=== PATIENT | female | born 1940 | race Caucasian/White ===

== ENCOUNTER 2018-03-18 19:23 | Emergency (ER) | payer MEDICARE ==
[2018-03-18] MEDS ORDERED: Sodium Chloride 0.9% 1,000 ML ONE (19:54)
[2018-03-18 19:55] LABS: BASO # 0.1 K/uL (0.0-0.2); BASO % 1.1 % (0.0-2.0); EOS # 0.3 K/uL (0.0-0.7); EOS % 5.6 % (0.0-4.0); HEMOGLOBIN 11.5 g/dL (11.0-16.0); LYMPH # 1.8 K/uL (1.0-4.3); LYMPH % 33.5 % (20.0-40.0); MEAN CELL VOLUME 88.4 fL (81.0-99.0); MEAN CORPUSCULAR HEMOGLOBIN 29.8 pg (27.0-31.0); MEAN CORPUSCULAR HGB CONC 33.7 g/dL (33.0-37.0); MEAN PLATELET VOLUME 9.9 fL (7.2-11.7); MONO # 0.4 K/uL (0.0-0.8); MONO % 7.8 % (0.0-10.0); NEUT # 2.8 K/uL (1.8-7.0); RBC 3.86 Mil/uL (3.80-5.20); RED CELL DISTRIBUTION WIDTH 14.3 % (11.5-14.5); WHITE BLOOD COUNT 5.4 K/uL (4.8-10.8)
[2018-03-18] MEDS ORDERED: Sodium Chloride 0.9% 1,000 ML IV SCH (20:00)
[2018-03-18 20:06] LABS: ALB/GLOB RATIO 1.4 (1.0-2.1); ALBUMIN 4.5 g/dL (3.5-5.0); CALCIUM 9.4 mg/dl (8.6-10.4)
--- NOTE | 2018-03-18 20:06 | C.PDOC ---
History Of Present Illness 77 y/o female brought to the ED for evaluation of vaginal bleeding that began 1 hour ago. Patient states that she went to shower and noticed bright red blood from the vagina running down her leg. No pain. Denies any abdominal discomfort, recent weight loss, change in appetite, dizziness, SOB, urinary symptoms, or GI changes. Patient states she has never had similar symptoms in the past and the bleeding has not continued. Time Seen by Provider: 03/18/18 19:41 Chief Complaint (Nursing): Female Genitourinary History Per: Patient History/Exam Limitations: no limitations Onset/Duration Of Symptoms: Hrs (x1) Current Symptoms Are (Timing): Still Present Past Medical History Reviewed: Historical Data, Nursing Documentation, Vital Signs Vital Signs: Last Vital Signs Temp 98.1 F 03/18/18 19:25 Pulse 79 03/18/18 19:25 Resp 20 03/18/18 19:25 BP 147/73 03/18/18 19:25 Pulse Ox 100 03/18/18 19:25 - Medical History PMH: Anemia, HTN Family History: States: No Known Family Hx - Social History Hx Alcohol Use: No Hx Substance Use: No - Immunization History Hx Tetanus Toxoid Vaccination: No Hx Influenza Vaccination: No Hx Pneumococcal Vaccination: No Review Of Systems Except As Marked, All Systems Reviewed And Found Negative. Constitutional: Negative for: Fever, Chills, Weight loss Eyes: Negative for: Vision Change Cardiovascular: Negative for: Chest Pain, Light Headedness Respiratory: Negative for: Shortness of Breath Gastrointestinal: Negative for: Vomiting, Abdominal Pain, Diarrhea, Rectal Pain Genitourinary: Positive for: Vaginal Bleeding. Negative for: Dysuria, Frequency, Incontinence, Pelvic Pain Neurological: Negative for: Weakness, Dizziness Physical Exam - Physical Exam Appears: Non-toxic, No Acute Distress Skin: Normal Color, Warm, Dry, No Ecchymosis Head: Atraumatic, Normacephalic Eye(s): bilateral: Normal Inspection, PERRL, EOMI Gastrointestinal/Abdominal: Normal Exam, Soft, No Tenderness, No Mass, No Distention, No Guarding Rectal: Normal Exam, No Hemorrhoids, No Mass, No Tenderness Pelvic: Normal External Exam, Normal Bimanual Exam, No Vaginal Bleeding, No Vaginal Discharge Pulses: Left Dorsalis Pedis: Normal, Right Dorsalis Pedis: Normal Neurological/Psych: Oriented x3, Normal Speech, Normal Cranial Nerves ED Course And Treatment - Laboratory Results Result Diagrams: 03/18/18 19:52 03/18/18 19:52 Lab Interpretation: No Acute Changes O2 Sat by Pulse Oximetry: 100 (RA) Pulse Ox Interpretation: Normal - CT Scan/US Pelvic US Other Rad Studies (CT/US): Read By Radiologist, Radiology Report Reviewed CT/US Interpretation: Name:CUONG GANDHI Exam Date:Mar 18, 2018 8:42:28 PM EDT. Modality Type:SD\US\MT\SR. Description:US - PELVIC REAL TIME TRANSABDOMINAL/TRANSVAGINAL W COLOR DOPPLER. Gender:F Laterality:Bilateral. :40 Referring Physician:Mona Morrell MD. History. Vaginal bleeding. Comparison. None available. Technique. TA/TV. Findings. Uterus. Measures 3.4 x 2.3 x 3.9 cm. Normal in size and appearance. No fibroid or other mass lesion seen. Endometrium. Measures 4.3 mm in diameter. Borderline in size. Cervix. No cervical abnormality identified. Right ovary. Not visualized. Left ovary. Not visualized. Free fluid. No significant free fluid noted. Other Findings. Complex nabothian cyst measures 0.6 x 0.4 x 0.6 cm. Impression. 1. Complex nabothian cyst. 2. Both ovaries are not visualized. Medical Decision Making Medical Decision Making: Initial Plan: --CMP --CBC --Urinalysis --Pelvic US --IV fluids --Reassess and dispo Patient informed of US results. Disposition Counseled Patient/Family Regarding: Studies Performed, Diagnosis, Need For Followup - Disposition Referrals: Robin Sky MD [Medical Doctor] - Disposition: HOME/ ROUTINE Disposition Time: 22:20 Condition: STABLE Additional Instructions: Patient should follow up with a care trainer for comprehensive evaluation for possible vaginal bleeding. Forms: [employer] (Romansh) - Clinical Impression Clinical Impression: Postmenopausal vaginal bleeding - Scribe Statement The provider has reviewed the documentation as recorded by the Scribe (Alyx Mcknight) Provider Attestation: All medical record entries made by the Scribe were at my direction and personally dictated by me. I have reviewed the chart and agree that the record accurately reflects my personal performance of the history, physical exam, medical decision making, and the department course for this patient. I have also personally directed, reviewed, and agree with the discharge instructions and disposition.
[2018-03-18 20:40] LABS: URINE BACTERIA RARE (<OCC); URINE BILIRUBIN NEGATIVE (NEGATIVE); URINE BLOOD 2+ (NEGATIVE); URINE CLARITY Clear (Clear); URINE COLOR Straw (YELLOW); URINE GLUCOSE (UA) NORMAL (Normal); URINE LEUKOCYTE ESTERASE NEG Leu/uL (Negative); URINE PROTEIN NEGATIVE (NEGATIVE); URINE UROBILINOGEN NORMAL mg/dL (0.2-1.0)
[2018-03-18 22:36] VITALS: BP 123/65; PULSE 71; RESP 18; TEMP 98.4; O2SAT 98
--- NOTE | 2018-03-19 11:19 | US ---
Date of service: 03/18/2018 HISTORY: vaginal bleeding COMPARISON: None available. TECHNIQUE: Transabdominal and transvaginal FINDINGS: UTERUS: Measures 5.4 x 2.3 x 3.9 cm. Normal in size and appearance. No fibroid or other mass lesion seen. ENDOMETRIUM: Measures 4 mm in diameter. Unremarkable. CERVIX: Several small nabothian cysts incidentally noted. RIGHT OVARY: Not visualized LEFT OVARY: Not visualized FREE FLUID: No significant free fluid noted. OTHER FINDINGS: None. IMPRESSION: Unremarkable postmenopausal pelvic ultrasound examination. The preliminary findings for this examination were reported by [facility] at 10:09 p.m. on 03/18/2018. There is concurrence of this report with the preliminary findings.
== END 2018-03-18 22:42 | disposition home or self-care (01) ==
LOC: C.ER 19:23
DX: N95.0 Postmenopausal bleeding (principal)
CPT/HCPCS: 76830; 76856; 80053; 81001; 85025; 99285; J7030

== ENCOUNTER 2018-07-16 15:45 | Emergency (ER) | payer MEDICARE ==
[2018-07-16 15:49] VITALS: BMI 30.2
[2018-07-16 15:56] VITALS: RESP 18
[2018-07-16 17:27] LABS: BASO # 0.1 K/uL (0.0-0.2); BASO % 1.6 % (0.0-2.0); EOS % 0.7 % (0.0-4.0); HEMOGLOBIN 11.4 g/dL (11.0-16.0); LYMPH # 0.9 K/uL (1.0-4.3); LYMPH % 23.3 % (20.0-40.0); MEAN CORPUSCULAR HEMOGLOBIN 29.1 pg (27.0-31.0); MEAN CORPUSCULAR HGB CONC 32.2 g/dL (33.0-37.0); MEAN PLATELET VOLUME 9.4 fL (7.2-11.7); MONO # 0.7 K/uL (0.0-0.8); MONO % 16.5 % (0.0-10.0); NEUT # 2.3 K/uL (1.8-7.0); NEUT % 57.9 % (50.0-75.0); NRBC % 0.1 % (0.0-2.0); RBC 3.91 Mil/uL (3.80-5.20); RED CELL DISTRIBUTION WIDTH 14.5 % (11.5-14.5)
[2018-07-16 17:34] LABS: MEAN CELL VOLUME 90.6 fL (81.0-99.0)
[2018-07-16 17:38] LABS: ALB/GLOB RATIO 1.4 (1.0-2.1); ALBUMIN 4.4 g/dL (3.5-5.0); ALT/SGPT 14 U/L (9-52); AST/SGOT 41 U/L (14-36); BLOOD UREA NITROGEN 29 mg/dL (7-17); CALCIUM 8.5 mg/dl (8.6-10.4); GFR NON-AFRICAN AMERICAN 22
[2018-07-16 17:50] LABS: CK-MB 0.71 ng/mL (0.0-3.38)
--- NOTE | 2018-07-16 18:16 | C.PDOC ---
History Of Present Illness 78 year old female, whose past medical history includes diabetes and hypertension, presents to the ED for evaluation after she had a syncopal episode yesterday. Patient states she felt like her blood sugar had dropped, causing her to fall and injure her right elbow. Patient checked her blood sugar this morning and found it was in the 50s. she then ate something and her BS improved to 140. Patient ate a meal and had some juice prior to ED arrival and states her symptoms have improved. she denies chest pain, shortness of breath, head injury, and headache. <Amita Deras - Last Filed: 07/16/18 18:56> History Per: Patient History/Exam Limitations: no limitations Onset/Duration Of Symptoms: Hrs Current Symptoms Are (Timing): Better Associated Symptoms Preceding Syncopal Episode: No Predromal Symptoms (Sudden Onset) <Amita Deras - Last Filed: 07/16/18 18:56> <Jose Greenfield - Last Filed: 07/16/18 21:21> Time Seen by Provider: 07/16/18 17:08 Chief Complaint (Nursing): Syncope Past Medical History Reviewed: Historical Data, Nursing Documentation, Vital Signs Vital Signs: Last Vital Signs Temp 98.8 F 07/16/18 15:51 Pulse 74 07/16/18 15:51 Resp 18 07/16/18 15:51 BP 122/70 07/16/18 15:51 Pulse Ox 99 07/16/18 15:51 - Medical History PMH: Anemia, HTN, Chronic Kidney Disease Surgical History: No Surg Hx Family History: States: Unknown Family Hx - Social History Hx Alcohol Use: No Hx Substance Use: No - Immunization History Hx Tetanus Toxoid Vaccination: No Hx Influenza Vaccination: Yes Hx Pneumococcal Vaccination: Yes <Amita Deras - Last Filed: 07/16/18 18:56> Vital Signs: Last Vital Signs Temp 98.5 F 07/16/18 19:39 Pulse 70 07/16/18 19:39 Resp 18 07/16/18 19:39 BP 127/72 07/16/18 19:39 Pulse Ox 99 07/16/18 19:02 <Jose Greenfield - Last Filed: 07/16/18 21:21> Review Of Systems Cardiovascular: Negative for: Chest Pain Respiratory: Negative for: Shortness of Breath Neurological: Positive for: Other (syncope ). Negative for: Headache <Amita Deras - Last Filed: 07/16/18 18:56> Physical Exam - Physical Exam Appears: Non-toxic, No Acute Distress Skin: Warm, Dry, Other (abrasion to right elbow ) Head: Atraumatic, Normacephalic Eye(s): bilateral: Normal Inspection, PERRL, EOMI Ear(s): Bilateral: Normal Nose: Normal, No Discharge Oral Mucosa: Moist Throat: Normal, No Erythema, No Exudate Neck: Normal ROM, Supple Chest: Symmetrical, No Deformity, No Tenderness Cardiovascular: Rhythm Regular, No Friction Rub, No Murmur Respiratory: Normal Breath Sounds, No Rales, No Rhonchi, No Wheezing Gastrointestinal/Abdominal: Soft, No Tenderness Back: Normal Inspection, No CVA Tenderness Extremity: Normal ROM, No Tenderness, Capillary Refill (less than 2 seconds ), No Deformity, No Swelling Neurological/Psych: Oriented x3, Normal Speech, Normal Cognition, Normal Motor, Normal Sensation Gait: Steady <Amita Deras C - Last Filed: 07/16/18 18:56> ED Course And Treatment - Laboratory Results Result Diagrams: 07/16/18 17:23 07/16/18 17:23 Lab Results: Troponin I < 0.0120 ng/mL (0.00-0.120) 07/16/18 17:23 Total Bilirubin 0.5 mg/dL (0.2-1.3) 07/16/18 17:23 AST 41 U/L (14-36) H D 07/16/18 17:23 ALT 14 U/L (9-52) 07/16/18 17:23 Alkaline Phosphatase 59 U/L (38-126) 07/16/18 17:23 Total Protein 7.7 g/dL (6.3-8.3) 07/16/18 17:23 Albumin 4.4 g/dL (3.5-5.0) 07/16/18 17:23 Globulin 3.3 gm/dL (2.2-3.9) 07/16/18 17:23 Albumin/Globulin Ratio 1.4 (1.0-2.1) 07/16/18 17:23 ECG: Interpreted By Me ECG Rhythm: Sinus Rhythm ECG Interpretation: Normal Rate From EC (bpm) O2 Sat by Pulse Oximetry: 99 (on RA) Pulse Ox Interpretation: Normal - Radiology CXR: Interpreted by Me CXR Interpretation: Yes: No Acute Disease. No: Infiltrates <Amita Deras - Last Filed: 07/16/18 18:56> - Laboratory Results Result Diagrams: 07/16/18 17:23 07/16/18 17:23 Lab Results: Troponin I < 0.0120 ng/mL (0.00-0.120) 07/16/18 17:23 Total Bilirubin 0.5 mg/dL (0.2-1.3) 07/16/18 17:23 AST 41 U/L (14-36) H D 07/16/18 17:23 ALT 14 U/L (9-52) 07/16/18 17:23 Alkaline Phosphatase 59 U/L (38-126) 07/16/18 17:23 Total Protein 7.7 g/dL (6.3-8.3) 07/16/18 17:23 Albumin 4.4 g/dL (3.5-5.0) 07/16/18 17:23 Globulin 3.3 gm/dL (2.2-3.9) 07/16/18 17:23 Albumin/Globulin Ratio 1.4 (1.0-2.1) 07/16/18 17:23 Pulse Ox Interpretation: Normal Reevaluation Time: 21:21 Reassessment Condition: Improved <Jose Greenfield - Last Filed: 07/16/18 21:21> Medical Decision Making Medical Decision Making: Progress: Bloodwork, CXR, EKG ordered and reviewed. <Amita Deras - Last Filed: 07/16/18 18:56> Disposition - Disposition Disposition Time: 18:58 <Amita Deras - Last Filed: 07/16/18 18:56> Counseled Patient/Family Regarding: Studies Performed, Diagnosis, Need For Followup, Rx Given <Jose Greenfield - Last Filed: 07/16/18 21:21> - Disposition Referrals: Robin Sky MD [Medical Doctor] - Disposition: HOME/ ROUTINE Condition: GOOD Additional Instructions: Please return if symptoms recur Prescriptions: Benzonatate [Tessalon Perles] 100 mg PO TID PRN #15 sgl PRN Reason: Cough Instructions: Low Blood Sugar, Adult (DC) Forms: [employer] (Lao) Print Language: MONGOLIAN - Clinical Impression Clinical Impression: Hypoglycemia - PA / APPLIQUE CUTTER / Resident Statement MD/DO has reviewed & agrees with the documentation as recorded. - Scribe Statement The provider has reviewed the documentation as recorded by the Scribe (Aruna Rodríguez) All medical record entries made by the Scribe were at my direction and personally dictated by me. I have reviewed the chart and agree that the record accurately reflects my personal performance of the history, physical exam, medical decision making, and the department course for this patient. I have also personally directed, reviewed, and agree with the discharge instructions and disposition. <Amita Deras - Last Filed: 07/16/18 18:56> Physician Patient Turnover Patient Signed Over To: Jose Greenfield Handoff Comments: Pending Re-eval and repeat sugar. <Amita Deras - Last Filed: 07/16/18 18:56>
--- NOTE | 2018-07-16 19:07 | RAD ---
Date of service: 07/16/2018 HISTORY: cough, syncope COMPARISON: No prior. FINDINGS: LUNGS: No active pulmonary disease. PLEURA: No significant pleural effusion identified, no pneumothorax apparent. CARDIOVASCULAR: No atherosclerotic calcification present No radiographic findings to suggest acute or significant cardiovascular disease. Incidental Finding(s): Postoperative changes related to sternotomy. OSSEOUS STRUCTURES: No significant abnormalities. VISUALIZED UPPER ABDOMEN: Normal. OTHER FINDINGS: None. IMPRESSION: No active disease.
[2018-07-16 21:43] VITALS: BP 144/78; PULSE 75; TEMP 98.6; O2SAT 98
--- NOTE | 2018-07-17 16:53 | CARD ---
APPROVED REPORT Date of service: 07/16/2018 EKG Measurement Heart [id number] <Conclusion> Normal sinus rhythm Low voltage QRS Borderline ECG
== END 2018-07-16 21:40 | disposition home or self-care (01) ==
LOC: C.ER 15:45
DX: E11.649 Type 2 diabetes mellitus with hypoglycemia without coma (principal)